=== PATIENT | male | born 1950 | race Caucasian/White ===

== ENCOUNTER → 2018-11-07 07:22 | Outpatient (CLI) | payer BC, SELFPAY ==
--- NOTE | 2018-11-07 | DI.MRI.S_ITS ---
PROCEDURE: MR LUMBAR SPINE WO/W CON INDICATIONS: Radiculopathy, lumbar region TECHNIQUE: Noncontrast sagittal T1 spin echo and T2 fast spin echo, sagittal STIR, axial T1 and T2 fast spin echo through the lumbar spine. In cases with scoliosis, additional coronal T2 fast spin echo may be performed. After the administration of contrast, sagittal and axial T1 spin echo with fat saturation through the lumbar spine. COMPARISON: None. FINDINGS: Image quality: Excellent. Alignment and curvature: There is grade 1 anterolisthesis of L3 on L4. Marrow: Marrow is of normal overall signal. No acute vertebral body compression fractures. Spinal cord: Conus medullaris terminates at the L1 level. Visualized spinal cord demonstrates normal signal, without suspicious enhancement. Paraspinous soft tissues: No paravertebral masses or abnormal enhancement. L1-L2: Preserved disc height. Moderate disc desiccation. There is diffuse posterior disc bulge. There is a posterior central annular fissure. The central canal is mildly narrowed. No foraminal stenosis. No definitive nerve root impingement. L2-L3: Preserved disc height. Moderate disc desiccation. There is diffuse posterior disc bulge. There is a posterior central annular fissure. Mild bilateral facet arthropathy. The central canal is mildly narrowed. Mild bilateral foraminal stenosis. No definitive nerve root impingement. L3-L4: Postsurgical changes with laminectomy. Preserved disc height. Moderate disc desiccation. There is diffuse posterior disc bulge. There is a posterior central annular fissure. Severe bilateral facet arthropathy The central canal is mildly narrowed. Mild bilateral foraminal stenosis. No definitive nerve root impingement. L4-L5: Preserved disc height. Moderate disc desiccation. There is diffuse posterior disc bulge. There is a posterior central annular fissure. Moderate bilateral facet arthropathy. The central canal is patent. Mild bilateral foraminal stenosis. No definitive nerve root impingement. L5-S1: Normal appearance intervertebral disc. Mild bilateral facet arthropathy. There is epidural lipomatosis. Mild central canal stenosis. No foraminal stenosis. IMPRESSION: 1. Multilevel degenerative and postsurgical changes as described. 2. Mild central canal stenosis at L1-L2, L2-L3 and L3-L4. 3. Mild foraminal stenosis at multiple levels. Dictated by: Gustavo Puente M.D. on 11/07/2018 at 9:11 Approved by: Gustavo Puente M.D. on 11/07/2018 at 9:27
== END ==
PROVIDERS: Visit Provider Neurological Surgery
DX: M47.26 Other spondylosis with radiculopathy, lumbar region (principal); M47.27 Other spondylosis with radiculopathy, lumbosacral region; M48.061 Spinal stenosis, lumbar region without neurogenic claudication; M48.07 Spinal stenosis, lumbosacral region
CPT/HCPCS: 72158

== ENCOUNTER → 2019-10-06 09:44 | Outpatient (CLI) | payer OTHER, SELFPAY ==
[2019-10-07 08:01] LABS: COVID19 Sendout Not Detected (Not Detect)
== END ==
PROVIDERS: Visit Provider Physician Assistant
DX: Z01.818 Encounter for other preprocedural examination (principal)
CPT/HCPCS: 87635

== ENCOUNTER 2019-10-09 10:09 | Day surgery (SDC) | payer OTHER, SELFPAY ==
--- NOTE | 2019-10-09 | PATH_ITS ---
[facility] Accession Number: [id number] . 01 Material submitted: . colon - RANDOM POLYPS . 02 Diagnosis: Colon, Random Polyps, Biopsies: Colonic mucosa with a few benign lymphoid aggregates and no other diagnostic abnormality. Negative for active inflammation, dysplasia and malignancy. MRV 10/10/2019 1410 Local . 02 Electronically signed: . Rocio Myers MD, Pathologist NPI- [id number] . 01 Gross description: . RANDOM POLYPS: Received in formalin are multiple fragment(s) of jama, soft tissue measuring 0.1 x 0.1 x 0.1 cm to 0.3 x 0.2 x 0.2 cm submitted entirely in 1 cassette(s) /CHANELLE 10/10/2019 0147 Local . 02 Pathologist provided ICD-10: R19.7 . 02 CPT . 697036 Performed at: 01 [facility] [address] [facility], [place], [place] [id number] MD Sal Gallardo MD Phone: [phone] Performed at: 02 [facility] [address] [place], [place] [id number] MD Rocio Myers MD Phone: [phone]
[2019-10-09 10:43] VITALS: BP 137/67; PULSE 48; RESP 16; TEMP 36.6; O2SAT 98; BMI 26.2
--- NOTE | 2019-10-09 11:32 | PM.OP.ENDO ---
Operative Date/Time/Diagnoses Date of procedure: 10/09/19 Time of procedure: 11:32 Pre-op diagnosis: See indication and findings Procedure & Clinicians Study performed: Colonoscopy Same procedure as scheduled: Yes Indications: Diarrhea and screening Surgeon: Oseas Bull Procedure Notes Procedure in detail: After informed consent was obtained the patient was placed in left lateral decubitus position. The video colonoscope was introduced the rectum slowly advanced cecum. Preparation was good. Ic valve was identified and intubated. On withdrawal mucosa was carefully examined. The scope was removed. The patient tolerated procedure well. Blood loss none Complications none Sedation Total sedation time 18 minutes Versed 5 mg fentanyl 100 mg IV titration Findings 1. Normal terminal ileum 2. Normal colonoscopy to cecum other than extensive pancolonic diverticulosis. Random biopsies taken to rule out microscopic colitis. We will be in touch regarding pathology results and next steps.
--- NOTE | 2019-10-09 11:33 | PM.PREOP ---
Pre-operative Note COVID-19 COVID-19 status: Negative Interval Note History & Physical reviewed/Exam performed by Physician: Yes Changes to H&P: No ASA Class (for procedural sedation): II
[2019-10-09] MEDS: MIDAZOLAM 5 MG/5 ML VIAL IV ×4 (11:38→11:46)
[2019-10-09] MEDS: fentaNYL 250 MCG/5 ML INJ IV (11:38)
[2019-10-09] MEDS: SODIUM CHLORIDE 0.9% 1,000 ML 42 ML IV (11:42)
[2019-10-09 12:00] VITALS: BP 105/60; PULSE 46; RESP 10; TEMP 36.3; O2SAT 96
[2019-10-09 12:05] VITALS: BP 98/68; PULSE 45; RESP 12; O2SAT 97
[2019-10-09 12:10] VITALS: BP 108/68; PULSE 51; RESP 16; O2SAT 96
[2019-10-09 12:26] VITALS: BP 101/60; PULSE 50; RESP 17; O2SAT 96
[2019-10-09 12:35] VITALS: BP 111/62; PULSE 47; RESP 17; TEMP 36.2; O2SAT 97
== END 2019-10-09 12:49 | disposition home or self-care (01) ==
PROVIDERS: PCP Family Medicine; Referring Provider Internal Medicine Gastroenterology; Visit Provider Internal Medicine Gastroenterology
PROC: 0DJD8ZZ Inspection of Lower Intestinal Tract, Via Natural or Artificial Opening Endoscopic (ICD-10-PCS; CPT 45378; principal; 2019-10-09 11:30)
DX: R19.7 Diarrhea, unspecified (principal); K57.30 Diverticulosis of large intestine without perforation or abscess without bleeding
CPT/HCPCS: 45380; J2250; J3010

== ENCOUNTER 2020-12-23 10:30 | Outpatient (RCR) | payer OTHER, SELFPAY | END 2020-12-23 12:30 | LOC: CAR 10:30 | PROVIDERS: PCP Family Medicine; Referring Provider Internal Medicine Cardiovascular Disease; Visit Provider Internal Medicine Cardiovascular Disease | DX: I50.9 Heart failure, unspecified (principal) | CPT/HCPCS: 93798 ==

== ENCOUNTER → 2021-02-22 08:49 | Outpatient (CLI) | payer OTHER, SELFPAY ==
--- NOTE | 2021-02-22 | DI.ECHO.S_ITS ---
[facility] +---------+ : : [address] : [address] : : : : [id number] : : : : Phone: [phone]---------+ Echocardiogram Report + + :Name: KEVEN FLETCHER Study Date: 02/22/2021 Height: 69 in : :[facility] ReadingLocation: Weight: 174 lb: : Gender: Male BSA: 1.9 m2 : :: 1950 Age: 70 yrs : :Reason For Study: Cardiomyopathy, Ischemic : :Ordering Physician: DENNIS Performed By: Tony Huff : :Referring: SERGIO LOPEZ : + + Interpretation Summary The ejection fraction is estimated to be 40-45%. Multiple segmental wall motion abnormalities exist as described in the body of the report. There is a slight improvement in the anterior and anterolateral wall contractility when compared to the prior study dated 10/06/2020. Procedure: A two-dimensional transthoracic echocardiogram with color flow and Doppler was performed in limited views only to assess LVEF. The study quality was technically adequate. Images from the parasternal window were difficult to obtain and are suboptimal in quality. Comparison is made with the echocardiogram of 10/06/2020. The patient was in normal sinus rhythm during the exam. Left Ventricle: The left ventricle is normal in size and wall thickness. The ejection fraction is estimated to be 40-45%. There is severe hypokinesis to akinesis of the distal anterior wall, mid to distal septal, mid to distal lateral, distal inferolateral, distal inferior and apical gonzalez. There is a slight improvement in anterior and anterolateral wall motion abnormalities. Right Ventricle: There is a pacemaker lead in the right ventricle. The right ventricle is normal size. The right ventricular systolic function is normal. Atria: The left atrial size is normal. There is a catheter/pacemaker lead seen in the right atrium. Right atrial size is normal. Mitral Valve: The mitral valve is normal. Tricuspid Valve: The tricuspid valve is normal. There is mild tricuspid regurgitation. Pericardium/ Pleura There is no pericardial effusion. There is no pleural effusion. MMode/2D Measurements & Calculations LVIDd: 4.9 cm LA A4 area: 14.8 cm2 LVIDs: 3.2 cm LA length (vol): 5.0 cm FS: 34.8 % IVSd: 0.92 cm LVPWd: 1.0 cm LV rasmussen. diameter/BSA (cm/m^2): 2.5 LV sys. diameter/BSA (cm/m^2): 1.6 RA long axis: 5.1 cm LVLs ap4: 6.2 cm RA area: 20.0 cm2 RA vol: 66.8 ml RA : 34.3 ml/m2 LVLd ap2: 8.2 cm LVLs ap2: 7.1 cm Doppler Measurements & Calculations MV E max joe: 67.7 cm/sec TR max joe: 192.7 cm/sec MV A max joe: 59.1 cm/sec TR max P.9 mmHg MV E/A: 1.1 Med Peak E' Joe: 7.4 cm/sec E/E' med: 9.1 Lat Peak E' Joe: 8.7 cm/sec E/E' lat: 7.8 E/e' average: 8.4 MV dec time: 0.28 sec Reading Physician:10:23 AM
== END ==
PROVIDERS: Referring Provider Internal Medicine Cardiovascular Disease; Visit Provider Internal Medicine Cardiovascular Disease
DX: I07.1 Rheumatic tricuspid insufficiency (principal); I25.5 Ischemic cardiomyopathy
CPT/HCPCS: 93307

== ENCOUNTER → 2023-01-13 08:59 | Outpatient (CLI) | payer OTHER, SELFPAY | PROVIDERS: PCP Internal Medicine; Referring Provider Nurse Practitioner Acute Care; Visit Provider Nurse Practitioner Acute Care | DX: Z79.899 Other long term (current) drug therapy (principal) | CPT/HCPCS: 94060; 94726; 94729 ==

== ENCOUNTER → 2023-02-25 08:47 | Outpatient (CLI) | payer OTHER, SELFPAY ==
[2023-02-25 10:28] LABS: Cholesterol 100 mg/dL (140-199); HDL Cholesterol 44 mg/dL (40-60); LDL Cholesterol Calculated 42 mg/dL (<100); Triglycerides 69 mg/dL (35-150)
[2023-02-25 10:29] LABS: Alanine Aminotransferase 41 IU/L (<50); Albumin 3.9 g/dL (3.5-5.0); Albumin Globulin Ratio 1.4 (1.0-2.8); Alkaline Phosphatase 74 U/L (38-126); Aspartate Aminotransferase 33 IU/L (17-59); Bilirubin Total 1.7 mg/dL (0.2-1.3); Bilirubin Unconjugated 1.6 mg/dL (0.0-1.1); Globulin 2.8 g/dL (1.7-4.1); HEMOLYSIS < 15 (0-50); Total Protein 6.7 g/dL (6.3-8.2)
[2023-02-25 10:59] LABS: Prostate Specific Antigen 1.72 ng/mL (0.10-4.00)
[2023-02-25 11:01] LABS: TSH w/ Reflex to FT4 3.31 uIU/mL (0.47-4.68)
== END ==
PROVIDERS: Nurse Practitioner Acute Care; Physician Assistant Medical; PCP Internal Medicine; Referring Provider Internal Medicine Cardiovascular Disease; Visit Provider Internal Medicine Cardiovascular Disease
DX: E78.2 Mixed hyperlipidemia (principal); I48.0 Paroxysmal atrial fibrillation; Z79.899 Other long term (current) drug therapy; Z87.898 Personal history of other specified conditions; Z98.890 Other specified postprocedural states
CPT/HCPCS: 36415; 80061; 80076; 84153; 84443

== ENCOUNTER → 2024-04-09 16:14 | Outpatient (CLI) | payer OTHER, SELFPAY ==
[2024-04-09 17:46] LABS: Alanine Aminotransferase 38 IU/L (<50); Albumin 4.4 g/dL (3.5-5.0); Albumin Globulin Ratio 1.3 (1.0-2.8); Alkaline Phosphatase 84 U/L (38-126); Aspartate Aminotransferase 44 IU/L (17-59); BUN Creatinine Ratio 15.1 (6-22); Bilirubin Total 1.8 mg/dL (0.2-1.3); Blood Urea Nitrogen 16 mg/dL (9-20); Calcium 9.4 mg/dL (8.4-10.2); Carbon Dioxide 29 mmol/L (22-32); Chloride 104 mmol/L (98-107); Estimated Glomerular Filt Rate > 60 mL/min (>60); Globulin 3.3 g/dL (1.7-4.1); Glucose 85 mg/dL (80-110); HEMOLYSIS 21 (0-50); Potassium 3.5 mmol/L (3.4-5.1); Sodium 137 mmol/L (137-145); Total Protein 7.7 g/dL (6.3-8.2)
[2024-04-09 18:20] LABS: Thyroid Stimulating Hormone 3.13 uIU/mL (0.47-4.68)
== END ==
LOC: RESP 16:15
PROVIDERS: PCP Internal Medicine; Referring Provider Internal Medicine Cardiovascular Disease; Visit Provider Internal Medicine Cardiovascular Disease
DX: Z79.899 Other long term (current) drug therapy (principal); J98.8 Other specified respiratory disorders; R94.2 Abnormal results of pulmonary function studies
CPT/HCPCS: 36415; 80053; 84443; 94060; 94726; 94729